=== PATIENT | female | born 1960 | race American Indian/Alaskan Native ===

== ENCOUNTER 2017-04-12 08:42 | Outpatient (CLI) | payer OTHER ==
--- NOTE | 2017-04-12 10:53 | XRay Report ---
Bilateral hips: History: Bilateral hip pain. Findings: No bony or articular abnormality. No fracture dislocation or soft tissue calcification. Impression: Essentially negative right and left hip.
== END 2017-04-12 08:43 | disposition home or self-care (01) ==
LOC: SPVIMAG 08:42
PROVIDERS: ATTEND Orthopaedic Surgery Sports Medicine
DX: M25.551 Pain in right hip (principal); M25.552 Pain in left hip
CPT/HCPCS: 73521